=== PATIENT | male | born 1960 | race Two or more races ===

== ENCOUNTER 2022-12-22 06:44 | Day surgery (SDC) | payer OTHER | END 2022-12-22 14:10 | disposition home or self-care (01) | LOC: AMB-ENDOS 06:44 | PROVIDERS: ATTEND Colon & Rectal Surgery | DX: K57.30 Diverticulosis of large intestine without perforation or abscess without bleeding (principal); K62.5 Hemorrhage of anus and rectum; R19.4 Change in bowel habit; Z20.822 Contact with and (suspected) exposure to COVID-19 ==